=== PATIENT | male | born 1995 | race Caucasian/White ===

== ENCOUNTER 2022-08-18 23:24 | Emergency (ER) | payer SELFPAY ==
[2022-08-19] MEDS ORDERED: Lidocaine 1% w/Epinephrine 1:200K 30 ML VIAL ONE (00:01)
[2022-08-19] MEDS ORDERED: Lidocaine 1% (PF) 30 ML VIAL ONE (00:07)
== END 2022-08-19 01:05 | disposition home or self-care (01) ==
LOC: CSHERS 23:24
DX: S61.012A Laceration without foreign body of left thumb without damage to nail, initial encounter (principal); W26.0XXA Contact with knife, initial encounter
CPT/HCPCS: 99282; J2001